=== PATIENT | male | born 1995 | race Caucasian/White ===

== ENCOUNTER 2017-01-25 22:33 | Emergency (ER) | payer SELFPAY ==
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
== END 2017-01-25 23:06 | disposition home or self-care (01) ==
LOC: ER 22:33
DX: S80.211A Abrasion, right knee, initial encounter (principal); F17.210 Nicotine dependence, cigarettes, uncomplicated; V19.9XXA Pedal cyclist (driver) (passenger) injured in unspecified traffic accident, initial encounter; Y92.830 Public park as the place of occurrence of the external cause